=== PATIENT | female | born 1985 | race Caucasian/White ===

== ENCOUNTER 2018-04-29 09:45 | Inpatient (IN) | payer OTHER ==
[2018-04-29] MEDS ORDERED: PENICILLIN G POTASSIUM 5 MU VIAL As Ordered (10:32)
[2018-04-29] MEDS: PENICILLIN G POTASSIUM IV 5 MU in D5W MINI-BAG PLUS 100 ML IV (10:56)
[2018-04-29] MEDS: LR 1,000 ML IV ×2 (10:56→12:11)
[2018-04-29 11:05] LABS: HEMATOCRIT 41.2 % (36.0-47.0); HEMOGLOBIN 14.2 g/dl (12.0-15.5); MEAN CORPUSCULAR HEMOGLOBIN 30.7 pg (27.0-33.0); MEAN CORPUSCULAR HGB CONC 34.5 g/dl (32.0-36.5); MEAN CORPUSCULAR VOLUME 89.2 fl (80.0-96.0); PLATELET COUNT, AUTOMATED 209 10^3/uL (150-450); RED BLOOD COUNT 4.62 10^6/uL (4.00-5.40); RED CELL DISTRIBUTION WIDTH 12.1 % (11.5-14.5); WHITE BLOOD COUNT 16.7 10^3/uL (4.0-10.0)
[2018-04-29] MEDS ORDERED: EPIDURAL/PCA KEYS XX (12:00)
[2018-04-29] MEDS ORDERED: REFRIGERATOR IV KEYS XX (12:00)
[2018-04-29] MEDS: FENTANYL/ROPIVACAINE/NACL BAG 100 ML EPIDURAL (12:34)
[2018-04-29] MEDS ORDERED: diphenhydrAMINE INJ 50MG/ML VIAL (J1200) IV (14:30)
[2018-04-29] MEDS ORDERED: ePHEDrine SULFATE 25 MG/5 ML(5MG/ML) SYRINGE IV (14:30)
[2018-04-29] MEDS ORDERED: ONDANSETRON 4MG/2ML VIAL (J2405) IV ×2 (14:30→20:00)
[2018-04-29] MEDS ORDERED: LACTATED RINGER'S 1000 ML IV (14:30)
[2018-04-29] MEDS ORDERED: NALOXONE INJ 0.4 MG/1 ML VIAL (J2310) IV (14:30)
[2018-04-29] MEDS ORDERED: OXYTOCIN 30 UNITS IN 0.9% NaCl 500ML IV BAG (J2590) As Ordered (14:45)
[2018-04-29] MEDS: PENICILLIN G POTASSIUM IV 2.5 MU in APPROPRIATE DILUENT 1 EA IV ×2 (14:59→18:53)
[2018-04-29] MEDS: OXYTOCIN DRIP 30 UNITS in APPROPRIATE DILUENT 1 EA IV (19:51)
[2018-04-29] MEDS ORDERED: MEASLES,MUMPS,RUBELLA VACCINE INJ (MMR-II) (90707) SC (20:00)
[2018-04-29] MEDS ORDERED: RHOGAM 300 MCG (1500 IU) INJ (J2790) IM (20:00)
[2018-04-29] MEDS: IBUPROFEN 800 MG TAB PO (20:52)
[2018-04-29] MEDS: DOCUSATE SODIUM 100 MG CAP PO (21:00)
[2018-04-30 00:45] LABS: HBSAG L&D NEGATIVE (NEGATIVE)
[2018-04-30] MEDS: DIBUCAINE 1% OINTMENT 30GM TOP (01:22)
[2018-04-30] MEDS: ACETAMINOPHEN TAB 650MG DOSE (2X325MG) PO (02:22)
[2018-04-30] MEDS: IBUPROFEN 800 MG TAB PO (07:52)
[2018-04-30] MEDS: DOCUSATE SODIUM 100 MG CAP PO ×2 (07:52→21:00)
[2018-04-30] MEDS: PRENATAL VITAMINS CHEWABLE TABLET PO (07:52)
[2018-05-01] MEDS: DOCUSATE SODIUM 100 MG CAP PO (08:49)
[2018-05-01] MEDS: PRENATAL VITAMINS CHEWABLE TABLET PO (08:49)
== END 2018-05-01 10:45 | disposition home or self-care (01) | DRG 807 ==
LOC: M LDO 09:45 → M LDI 10:27 → M OBS 21:13
PROVIDERS: Obstetrics & Gynecology
PROC: 10E0XZZ Delivery of Products of Conception, External Approach (ICD-10-PCS; principal; 2018-04-29)
PROC: 0KQM0ZZ Repair Perineum Muscle, Open Approach (ICD-10-PCS; 2018-04-29)
PROC: 10907ZC Drainage of Amniotic Fluid, Therapeutic from Products of Conception, Via Natural or Artificial Opening (ICD-10-PCS; 2018-04-29)
DX: O99.824 Streptococcus B carrier state complicating childbirth (principal); Z37.0 Single live birth; Z3A.39 39 weeks gestation of pregnancy; O32.6XX0 Maternal care for compound presentation, not applicable or unspecified; O70.1 Second degree perineal laceration during delivery

== ENCOUNTER 2018-10-23 17:30 | Emergency (ER) | payer OTHER ==
[~2018-10-23] VITALS: Ht 167.6 cm; Wt 60.6 kg
[~2018-10-23 17:30] MED LIST: COLA100C5 PO; DIBU1OIN TOP; IBUP-1114 PO; MAPA500T2 PO; PRENTAB9 PO; UNIS25TA3 PO; VITA100T14 PO
[2018-10-23] MEDS ORDERED: LECI1CAP PO (17:38)
[2018-10-23] MEDS ORDERED: ZOLO50TA PO (17:38)
[2018-10-23 20:10] LABS: BASO % 0.3 % (0.0-1.0); EOS # 0.1 10^3/uL (0.0-0.50); EOS % 0.8 % (0.0-3.0); HEMOGLOBIN 14.9 g/dl (12.0-15.5); LYMPH # 2.9 10^3/uL (1.5-4.5); LYMPH % 25.3 % (24.0-44.0); MEAN CORPUSCULAR HEMOGLOBIN 30.8 pg (27.0-33.0); MEAN CORPUSCULAR HGB CONC 34.7 g/dl (32.0-36.5); MONO # 0.7 10^3/uL (0.0-0.8); MONO % 6.2 % (0.0-5.0); NEUTROPHILS # 7.6 10^3/uL (1.8-7.7); NEUTROPHILS % 67.1 % (36.0-66.0); PLATELET COUNT, AUTOMATED 218 10^3/uL (150-450); RED BLOOD COUNT 4.83 10^6/uL (4.00-5.40); WHITE BLOOD COUNT 11.4 10^3/uL (4.0-10.0)
[2018-10-23] MEDS ORDERED: POLYSPORIN TOPICAL OINTMENT 15GM TOP ONE (22:00)
--- NOTE | 2018-10-23 23:04 | REPVR ---
EXAM: US Left Breast Limited, Abscess EXAM DATE/TIME: 10/23/2018 7:57 PM CLINICAL HISTORY: 33 years old, female; Breast Pain; Left; Additional Info: left nipple swelling/ro abscess TECHNIQUE: Imaging protocol: Left breast ultrasound. Exam limited to the quadrant(s) of clinical concern. Exam focused on the evaluation of abscess. COMPARISON: No relevant prior studies available. FINDINGS: US breast: Exam focused in the retroareolar region. There are mildly dilated ducts. No fluid collection. No mass lesion evident. IMPRESSION: 1. No fluid collection to suggest abscess. 2. Mildly dilated ducts. 3. This limited emergent examination does not substitute for full diagnostic sonographic breast evaluation. Recommend followup full diagnostic imaging evaluation as clinically warranted. Electronically signed by: Bimal Wilcox On 10/23/2018 23:04:43 PM
[2018-10-23 23:24] VITALS: BP 139/83
--- NOTE | 2018-10-28 08:37 | ED PDOC ---
Post-Departure Follow-Up breast us report faxed to dr talbot, junior ruiz for fu Priyanka Zuniga MD Oct 28, 2018 08:37
== END 2018-10-23 23:24 | disposition home or self-care (01) ==
LOC: M ED 17:30
DX: N64.59 Other signs and symptoms in breast (principal); Z39.1 Encounter for care and examination of lactating mother; F32.9 Major depressive disorder, single episode, unspecified; Z79.899 Other long term (current) drug therapy